=== PATIENT | female | born 1935 | race Caucasian/White ===

== ENCOUNTER 2016-11-17 10:48 | Outpatient (CLI) | payer MEDICARE, OTHER ==
--- NOTE | 2016-11-17 12:08 | XRAY Report ---
TWO-VIEW RIGHT LOWER LE11/17/2016 CLINICAL INDICATION: Pain. FINDINGS: Frontal and lateral views of the right lower leg demonstrate no evidence of acute fracture or dislocation. No radiopaque foreign body is seen in the soft tissues. IMPRESSION: NORMAL RIGHT LOWER LEG. JOB #: [id number] EXT JOB #:[id number]
== END 2016-11-17 10:49 | disposition home or self-care (01) ==
LOC: DI 10:48
PROVIDERS: ATTEND Internal Medicine
DX: M79.661 Pain in right lower leg (principal)

== ENCOUNTER 2016-12-06 20:50 | Outpatient (CLI) | payer MEDICARE, OTHER ==
--- NOTE | 2016-12-06 22:20 | Ultrasound Preliminary Report ---
Exam: US Duplex Ext Veins Right IMPRESSION: No evidence for deep venous thrombosis. [facility] SITE ID: [id number]
--- NOTE | 2016-12-06 22:22 | Ultrasound Report ---
EXAM: RIGHT LOWER EXTREMITY VENOUS ULTRASOUND EXAM DATE: 12/06/2016 09:02 PM. CLINICAL HISTORY: R LEG PAIN. COMPARISON: None. TECHNIQUE: Real-time sonographic vascular imaging was performed by the engineering specialist technician through the lower extremity utilizing both color-flow and Doppler spectral analysis. Multiple used equipment sales representative static ketan ges were saved for review. FINDINGS: Common Femoral Vein (CFV): Normal. CFV-GSV Junction: Normal. Profunda Femoral Vein (PFV): Normal. Femoral Vein (FV) Prox: Normal. Femoral Vein (FV) Mid: Normal. Femoral Vein (FV) Dist: Normal. Popliteal Vein: Normal. Posterior Tibial Veins: Normal. Peroneal Veins: Normal. Other: Tiny fluid collection in the soft tissues at the lateral right knee in the area of pain measur ing 4 x 2 x 6 mm. IMPRESSION: No evidence for deep venous thrombosis. [facility] Referring Provider Line: [phone] SITE ID: [id number]
== END 2016-12-06 20:51 | disposition home or self-care (01) ==
LOC: DI 20:50
PROVIDERS: ATTEND Internal Medicine
DX: M79.604 Pain in right leg (principal)

== ENCOUNTER 2016-12-29 07:13 | Day surgery (SDC) | payer MEDICARE, OTHER ==
[~2016-12-29 07:13] MED LIST: PHENYLEPHRINE 2.5% OPHTH 2 ML DROPS ONE
[2016-12-29] MEDS ORDERED: LACTATED RINGERS 1,000 ML IV ONE (07:27)
[2016-12-29] MEDS ORDERED: PROPARACAINE 0.5% OPHTH DROPS 15 ML OPTH ONE ×2 (07:36→08:51)
[2016-12-29] MEDS ORDERED: CYCLOPENTOLATE 1% OPHTH DROPS 2 ML OPTH ONE (07:36)
[2016-12-29] MEDS ORDERED: PHENYLEPHRINE 2.5% OPHTH 2 ML DROPS OPTH ONE (07:36)
[2016-12-29] MEDS ORDERED: KETOROLAC 0.45% OPHTH DROPS OPTH ONE (07:36)
[2016-12-29] MEDS ORDERED: EPINEPHrine 1 MG/ML AMP IVP ONE (08:50)
[2016-12-29] MEDS ORDERED: BRIMONIDINE 0.2% OPHTH DROPS 5 ML OPTH ONE (08:50)
[2016-12-29] MEDS ORDERED: CHONDR SULF/HYALURONATE SYRINGE IO ONE (08:50)
[2016-12-29] MEDS ORDERED: TIMOLOL 0.5% OPHTH DROPS OPTH ONE (08:51)
[2016-12-29] MEDS ORDERED: TRIAMCIN/MOXIFLOX/VANCO 1 ML VIAL IO ONE ×3 (08:51)
[2016-12-29] MEDS ORDERED: BSS/LIDOCAINE/EPINEPHRINE 1 ML SYRINGE IO ONE ×2 (08:51)
[2016-12-29] MEDS ORDERED: PROPOFOL 200 MG/20 ML VIAL IVP ONE (09:00)
[2016-12-29] MEDS ORDERED: LIDOCAINE-MPF 2% 5 ML VIAL IM ONE (09:00)
[2016-12-29] MEDS ORDERED: MIDAZOLAM 2 MG/2 ML VIAL IVP ONE (09:00)
--- NOTE | 2016-12-29 09:35 | OPERATIVE REPORT ---
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 This was her first cataract surgery. A Malyugin ring was used to expand the pupil. 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 This was her first cataract surgery. A Malyugin ring was used to expand the pupil. NAME OF PROCEDURE: Phacoemulsification, posterior chamber intraocular lens implant, left eye. SURGEON: Collin Beverly M.D. ANESTHESIA: Monitored anesthesia care. COMPLICATIONS: None. 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 Best corrected visual acuity was 20/30 with glare to 20/200 in the left eye. INDICATIONS FOR SURGERY: Overall decrease in vision, difficulty reading, difficulty seeing street signs, difficulty driving in low light or at night, difficulty driving at night because of the headlights from other vehicles or street lights, difficulty with glare or bright lights in any situation, and difficulty tracking a golf ball. She was consented at length concerning the risks and benefits of cataract surgery, after which she expressed a desire to proceed with surgery. OPERATIVE PROCEDURE: The patient was taken into OR #2 and placed under monitored anesthesia care. A surgical time-out was conducted, confirming correct patient, correct procedure, and correct surgical site. She was placed under the LenSx laser and her eye docked to the laser interface. The laser performed the phaco wounds and an arcuate keratotomy incision. She was then moved to the operating microscope, given topical anesthesia, and then prepped and draped in the usual sterile fashion. The eye was entered at the 6 and 3 o'clock positions. Intracameral Shugarcaine was injected into the anterior chamber followed by Viscoat. A Malyugin ring was then introduced into the anterior chamber and engaged the pupil at 4 points. A curvilineal capsulorrhexis flap was then created with a cystotome followed by capsulorrhexis forceps and the capsulorrhexis removed from the anterior chamber. The nucleus was hydrodissected and phacoemulsified. The cortex was evacuated using automated infusion/aspiration. Provisc was injected in the capsular bag and a 23.0 diopter intraocular lens inserted in the bag. The Malyugin ring was disengaged from the pupil margin and removed from the anterior chmaber. Approximately 0.8 ml of a mixture of triamcinolone, moxifloxacin, and vancomycin was injected subconjunctivally in the superior quadrant for infection and inflammation prophylaxis. I/A was used to evacuate the viscoelastic materials. The eye was inflated to physiologic pressure using balanced salt solution and found to be watertight. The patient was taken from the operating room in good condition and given postoperative instructions. JOB #: [id number] EXT JOB #:[id number]
[2016-12-29 09:40] VITALS: BP 136/75
== END 2016-12-29 07:14 | disposition home or self-care (01) ==
LOC: SDS 07:13
PROVIDERS: ATTEND Ophthalmology
PROC: 08RK3JZ Replacement of Left Lens with Synthetic Substitute, Percutaneous Approach (ICD-10-PCS; principal; 2016-12-29 08:30)
DX: H25.12 Age-related nuclear cataract, left eye (principal); Z82.49 Family history of ischemic heart disease and other diseases of the circulatory system; Z90.710 Acquired absence of both cervix and uterus; Z88.0 Allergy status to penicillin
CPT/HCPCS: 66982; A9270; J7120; V2632

== ENCOUNTER 2017-01-05 10:58 | Outpatient (CLI) | payer MEDICARE, OTHER ==
--- NOTE | 2017-01-05 18:54 | MRI Report ---
EXAM: RIGHT CALF/TIBIA MRI WITHOUT CONTRAST EXAM DATE: 01/05/2017 12:14 PM. CLINICAL HISTORY: Chronic right lateral leg pain. Evaluate for stress fracture. COMPARISON: X-ray 11/17/2016. TECHNIQUE: Multiplanar, multisequence T1-weighted and fluid-sensitive sequences of the calf/tibia wit hout contrast. Other: None. FINDINGS: Bones: Minimal endosteal T2 hyperintensity posterior distal fibula on (801/21). Remaining bony struct ures appear normal. Joint Spaces: Visualized portions of the ankle and knee joints are unremarkable. Tendons: Where visualized, the Achilles and plantaris tendons are intact. Musculature: No edema or fatty atrophy. Other: The subcutaneous tissues are unremarkable. IMPRESSION: 1. Minimal endosteal marrow edema distal fibula, suggests mild stress reaction. [facility] MUSCULOSKELETAL RADIOLOGY SECTION Referring Provider Line: [phone] SITE ID: [id number]
== END 2017-01-05 10:59 | disposition home or self-care (01) ==
LOC: DI 10:58
PROVIDERS: ATTEND Orthopaedic Surgery
DX: M79.604 Pain in right leg (principal)

== ENCOUNTER 2017-02-02 07:49 | Day surgery (SDC) | payer MEDICARE, OTHER ==
[~2017-02-02 07:49] MED LIST changes: +CYCLOPENTOLATE 1% OPHTH DROPS 2 ML ONE; +KETOROLAC 0.45% OPHTH DROPS ONE; +PROPARACAINE 0.5% OPHTH DROPS 15 ML ONE
[2017-02-02] MEDS ORDERED: CYCLOPENTOLATE 1% OPHTH DROPS 2 ML OPTH ONE (08:30)
[2017-02-02] MEDS ORDERED: PROPARACAINE 0.5% OPHTH DROPS 15 ML OPTH ONE ×2 (08:30→09:43)
[2017-02-02] MEDS ORDERED: PHENYLEPHRINE 2.5% OPHTH 2 ML DROPS OPTH ONE (08:30)
[2017-02-02] MEDS ORDERED: KETOROLAC 0.45% OPHTH DROPS OPTH ONE (08:30)
[2017-02-02] MEDS ORDERED: LACTATED RINGERS 500 ML IV ONE (08:33)
[2017-02-02] MEDS ORDERED: MIDAZOLAM 2 MG/2 ML VIAL IVP ONE (09:31)
[2017-02-02] MEDS ORDERED: BRIMONIDINE 0.2% OPHTH DROPS 5 ML OPTH ONE (09:42)
[2017-02-02] MEDS ORDERED: BSS/LIDOCAINE/EPINEPHRINE 1 ML SYRINGE IO ONE (09:43)
[2017-02-02] MEDS ORDERED: TIMOLOL 0.5% OPHTH DROPS OPTH ONE (09:43)
[2017-02-02] MEDS ORDERED: EPINEPHrine 1 MG/ML AMP IVP ONE (09:43)
[2017-02-02] MEDS ORDERED: CHONDR SULF/HYALURONATE SYRINGE IO ONE (09:43)
[2017-02-02] MEDS ORDERED: TRIAMCIN/MOXIFLOX/VANCO 1 ML VIAL IO ONE ×2 (09:44)
[2017-02-02 10:20] VITALS: BP 103/56
--- NOTE | 2017-02-03 03:15 | OPERATIVE REPORT ---
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 Cataract surgery was performed similarly on the rig ht eye on 29 December 2016 again using pupil expansion with Malyugin ring. POSTOPERATIVE DIAGNOSIS: Visually significant cataract left eye, complex due to small pupil requirin g pupil expansion from pseudoexfoliation syndrome. Cataract surgery was performed similarly on the ri t eye on 29 December 2016 again using pupil expansion with Malyugin ring. NAME OF PROCEDURE: Phacoemulsification posterior chamber intraocular lens implant left eye. SURGEON: Collin Beverly M.D. ANESTHESIA: Monitored anesthesia care. COMPLICATIONS: None. OPERATIVE INDICATIONS: This is an 81-year-old woman with progressive vision loss in the left eye due to 3-4+ nuclear sclerotic cataract. Best corrected visual acuity was 20/25 with glare to 20/200 in th e right eye. INDICATIONS FOR SURGERY: Overall decrease in vision, difficulty seeing words on a computer screen, di fficulty seeing words and closed captions on TV. Difficulty seeing street signs, difficulty driving a t night because of headlights from other vehicles and difficulty tracking a golf ball. She consented at length concerning risks and benefits of cataract surgery after which she expressed a desire to pro ceed with surgery. OPERATIVE PROCEDURE: The patient was taken into OR #2 and placed under monitored anesthesia care. A s urgical timeout was conducted confirming correct patient, correct procedure and correct surgical site . She was placed under the LenSx laser and her eye docked to the laser interface. The laser performed phaco-wounds and ocular keratotomy incisions only because her pupil is too small to be able to perfo rm a capsulotomy or lens softening. She was then moved to the operating microscope, given topical ane sthesia and prepped and draped in the usual sterile fashion. The eye was entered at 6 and 3 o'clock p ositions. Intracameral Shugarcaine was injected into the anterior chamber followed by Viscoat. The Ma lyugin ring was injected into the anterior chamber and gauged the pupil at 4 points to expand the pup il. A capsulorhexis flap was created using a Cystotome and Utrata forceps. The nucleus was then hydro dissected and phacoemulsified. The cortex was evacuated using automated and infusion aspiration. Prov isc was injected in the capsular bag and a 22.5 Diopter intraocular lens inserted into the bag. Appro ximately 0.9 mL of a mixture of triamcinolone, moxifloxacin, vancomycin was injected in the subconjun ctival and superior quadrant for inflammation and infection prophylaxis. The Malyugin ring was then d isengaged from the pupillary margin and removed from the anterior chamber. I/A was used to evacuate t he viscoelastic structures. The eye was inflated to a physiologic pressure using balanced salt soluti on and found to be watertight. The patient was taken from the operating room in good condition and gi ann-marie postoperative instructions. JOB #: [id number] EXT JOB #:[id number]
== END 2017-02-02 07:50 | disposition home or self-care (01) ==
LOC: SDS 07:49
PROVIDERS: ATTEND Ophthalmology
PROC: 08RK3JZ Replacement of Left Lens with Synthetic Substitute, Percutaneous Approach (ICD-10-PCS; principal; 2017-02-02 09:00)
DX: H25.11 Age-related nuclear cataract, right eye (principal); Z98.41 Cataract extraction status, right eye; Z96.1 Presence of intraocular lens
CPT/HCPCS: 66982; A9270; J3490; V2632

== ENCOUNTER 2017-02-23 11:05 | Outpatient (CLI) | payer MEDICARE, OTHER | END 2017-02-23 11:06 | disposition home or self-care (01) | LOC: CAM 11:05 | PROVIDERS: ATTEND Internal Medicine | DX: M79.604 Pain in right leg (principal) | CPT/HCPCS: 97810; 97811 ==

== ENCOUNTER 2017-03-02 11:57 | Outpatient (CLI) | payer SELFPAY | END 2017-03-02 11:58 | disposition home or self-care (01) | LOC: CAM 11:57 | PROVIDERS: ATTEND Internal Medicine | DX: M79.604 Pain in right leg (principal) | CPT/HCPCS: 97813; 97814 ==

== ENCOUNTER 2017-03-09 16:09 | Outpatient (CLI) | payer SELFPAY | END 2017-03-09 16:10 | disposition home or self-care (01) | LOC: CAM 16:09 | PROVIDERS: ATTEND Internal Medicine | DX: M79.604 Pain in right leg (principal) | CPT/HCPCS: 97813; 97814 ==

== ENCOUNTER 2020-05-27 11:31 | Outpatient (CLI) | payer MEDICARE, OTHER ==
--- NOTE | 2020-05-27 13:41 | Ultrasound Report ---
PROCEDURE: Head or Neck Soft Tissue INDICATIONS: LT POSTERIOR NECK LUMP TECHNIQUE: Real time scanning was performed of the neck region of interest, with image documentation . COMPARISON: None. FINDINGS: No soft tissue neck abnormality seen bilaterally the clinical history obtained from the p atient indicates palpable lump posterior lateral left neck for approximately 3 weeks without reported pain. This has not changed in size. During scanning over the area directed by the patient no mass le carlotta, abnormal fluid collection or lymph node is identified. IMPRESSION: Continued clinical follow-up is recommended. A sonographically identifiable source of the current rep orted asymmetric persistent palpable abnormality without pain is not identified. Depending on the cli nical status follow-up by high-resolution contrast enhanced MR scanning may become necessary if sympt oms persist or worsen. Reviewed by: Price Hicks MD on 05/27/2020 1:40 PM PST Approved by: Price Hicks MD on 05/27/2020 1:40 PM PST Station ID: [id number]
== END 2020-05-27 11:32 | disposition home or self-care (01) ==
LOC: DI 11:31
PROVIDERS: ATTEND Internal Medicine
DX: R22.1 Localized swelling, mass and lump, neck (principal)
CPT/HCPCS: 76536

== ENCOUNTER 2020-06-17 15:44 | Outpatient (CLI) | payer MEDICARE, OTHER ==
[2020-06-17 16:34] LABS: CREATININE 0.7 mg/dL (0.4-1.0)
[2020-06-17] MEDS ORDERED: GADOBUTROL 7.5 MMOL/7.5 ML VIAL IVP ONE (17:54)
--- NOTE | 2020-06-18 13:00 | MRI Report ---
PROCEDURE: Neck Soft Tissue W/WO INDICATIONS: LUMP POSTERIOR L, NECK CONTRAST: IV CONTRAST: Gadavist ml: 4 TECHNIQUE: Sagittal/axial/coronal T1 spin echo and STIR. After the administration of contrast, axial/coronal/sa gittal T1 fast spin echo with fat saturation through the neck. COMPARISON: Neck ultrasound 05/27/2020 FINDINGS: Image quality: Excellent. Lymph nodes: No enlarged nodes are seen throughout the neck. Vessels: Visualized vasculature appears normal, with eduar flow voids and enhancement. Neck spaces: The oropharynx, nasopharynx and pharynx are unremarkable, without mucosal lesions seen. Vocal cords, false vocal cords, pyriform sinuses, epiglottis, vallecula, and tongue base all appear normal. Extramucosal spaces of the neck also appear unremarkable. Glands: The parotid and submandibular glands appear normal. The thyroid is normal in size. Miscellaneous: Visualized brain and orbits appear normal. Lung apices appear clear. Superficial so ft tissues appear normal. Visualized sinuses and mastoids appear clear. Bones: Marrow has normal overall signal. IMPRESSION: 1. No visualized abnormal signal, mass lesion or enhancement within the area of palpable concern. Reviewed by: Michela Kerr MD on 06/18/2020 12:59 PM PST Approved by: Michela Kerr MD on 06/18/2020 12:59 PM PST Station ID: [id number]
== END 2020-06-17 15:45 | disposition home or self-care (01) ==
LOC: LAB 15:44
PROVIDERS: ATTEND Internal Medicine
DX: R22.1 Localized swelling, mass and lump, neck (principal); Z79.899 Other long term (current) drug therapy
CPT/HCPCS: 36415; 70543; 82565; A9585

== ENCOUNTER 2021-10-27 15:46 | Outpatient (CLI) | payer MEDICARE, OTHER ==
[2021-10-27 18:12] LABS: ALBUMIN 4.3 g/dL (3.2-5.5); ALBUMIN/GLOBULIN RATIO 1.4 (1.0-2.2); ALKALINE PHOSPHATASE 72 IU/L (42-121); ALT ALANINE AMINOTRANSFERASE 12 IU/L (10-60); AST ASPARTATE AMINOTRANSFERASE 26 IU/L (10-42); BILIRUBIN,TOTAL 0.5 mg/dL (0.2-1.0); BUN - BLOOD UREA NITROGEN 15 mg/dL (6-20); CALCIUM 9.4 mg/dL (8.5-10.3); CARBON DIOXIDE - CO2 30 mmol/L (21-32); CHLORIDE 92 mmol/L (101-111); CHOLESTEROL 198 mg/dL; CREATININE 0.6 mg/dL (0.4-1.0); GFR - MDRD 95 (>89); GLUCOSE 112 mg/dL (70-100); HDL CHOLESTEROL 100 mg/dL; LDL CHOLESTEROL,CALCULATED 75 mg/dL; LDL/HDL RATIO 0.8 (<4.4); POTASSIUM 3.8 mmol/L (3.5-5.0); SODIUM 130 mmol/L (135-145); TOTAL PROTEIN 7.4 g/dL (6.7-8.2); TRIGLYCERIDES 113 mg/dL; VLDL CHOLESTEROL 23 mg/dL
[2021-10-27 18:22] LABS: BASOPHILS % (AUTO) 0.4 %; EOSINOPHILS % (AUTO) 0.6 %; HCT - HEMATOCRIT 41.9 % (37.0-47.0); HGB - HEMOGLOBIN 13.7 g/dL (12.0-16.0); LYMPHOCYTES # (AUTO) 0.8 10^3/uL (1.5-3.5); LYMPHOCYTES % (AUTO) 15.3 %; MEAN CORPUSCULAR HEMOGLOBIN 31.2 pg (27.0-31.0); MEAN CORPUSCULAR HGB CONC 32.7 g/dL (32.0-36.0); MEAN CORPUSCULAR VOLUME 95.4 fL (81.0-99.0); MEAN PLATELET VOLUME 9.1 fL (7.9-10.8); MONOCYTES # (AUTO) 0.4 10^3/uL (0.0-1.0); MONOCYTES % (AUTO) 7.4 %; NEUTROPHILS # (AUTO) 3.8 10^3/uL (1.5-6.6); NEUTROPHILS % (AUTO) 75.7 %; PLT - PLATELET COUNT 271 10^3/uL (130-450); RED BLOOD COUNT 4.39 10^6/uL (4.20-5.40); RED CELL DISTRIBUTION WIDTH 12.6 % (12.0-15.0)
== END 2021-10-27 15:47 | disposition home or self-care (01) ==
LOC: LAB.R 15:46
PROVIDERS: ATTEND Internal Medicine
DX: Z00.00 Encounter for general adult medical examination without abnormal findings (principal); N95.2 Postmenopausal atrophic vaginitis; H61.20 Impacted cerumen, unspecified ear; M19.90 Unspecified osteoarthritis, unspecified site; M85.80 Other specified disorders of bone density and structure, unspecified site; R49.0 Dysphonia; R73.01 Impaired fasting glucose
CPT/HCPCS: 80053; 80061; 81599; 83036; 83721; 84443; 85025

== ENCOUNTER 2021-11-05 13:46 | Outpatient (CLI) | payer MEDICARE, OTHER ==
--- NOTE | 2021-11-05 17:56 | DEXA Report ---
PROCEDURE: Dexa Spine and/or Hip INDICATIONS: OSTEOPENIA TECHNIQUE: Dual energy x-ray absorptiometry (DXA) was performed on a Postachio System. Regions measur ed are the AP Spine, femoral neck, and if needed forearm. COMPARISON: None. FINDINGS: Lumbar Spine: Bone Mineral Density 0.965 g/cm/cm,T score -1.8 Left Hip: Bone Mineral Density 0.649 g/cm/cm,T score - 2.8 Left Femoral Neck: Bone Mineral Density 0.609 g/cm/cm, T score -3.1 (T score greater or equal to -1.0: NORMAL) (T score from -1.1 to -2.4: OSTEOPENIA) (T score less than or equal to -2.5 to: OSTEOPOROSIS) Impression: Osteoporosis Patients with diagnosis of osteoporosis or osteopenia should have regular bone mineral density assess ment. For those eligible for Medicare, routine testing is allowed once every 2 years. Testing frequ ency can be increased for patients who have rapidly progressing disease or for those who are receivin g medical therapy to restore bone mass. Reviewed by: Vik Bob MD on 11/05/2021 5:54 PM PDT Approved by: Vik Bob MD on 11/05/2021 5:54 PM PDT Station ID: [id number]
== END 2021-11-05 13:47 | disposition home or self-care (01) ==
LOC: DI 13:46
PROVIDERS: ATTEND Internal Medicine
DX: M81.0 Age-related osteoporosis without current pathological fracture (principal)

== ENCOUNTER 2021-11-25 12:15 | Outpatient (CLI) | payer MEDICARE, OTHER ==
[2021-11-25] MEDS ORDERED: GADOBUTROL 7.5 MMOL/7.5 ML VIAL ONE (12:58)
[2021-11-25] MEDS ORDERED: GADOBUTROL 7.5 MMOL/7.5 ML VIAL IVP ONE (14:29)
--- NOTE | 2021-11-25 15:04 | MRI Report ---
PROCEDURE: Angio Neck W/WO (MRA) INDICATIONS: SPEECH PROBLEMS CONTRAST: IV CONTRAST: Gadavist ml: 3.9 TECHNIQUE: Axial and sagittal balanced GE through the neck. Noncontrast 2D [id number] images were performed . Coronal dynamic MRA after the administration of contrast in the arterial and venous phases, with ro tating 3-dimensional maximum intensity projection (MIP) reformats constructed from subtraction images . COMPARISON: Correlation is made with the accompanying brain MRI and brain MR angiogram, 11/24/2021. FINDINGS: Image quality: Excellent. Carotid system: Incidental note is made of a common trunk off of the aorta of the right brachiocepha lic artery and the left common carotid artery (bovine type aortic arch). 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 The origins of the common carotid arteri es appear normal. The calibers and courses of the common carotid arteries are likewise normal. The carotid bifurcations appear normal bilaterally. The internal carotid arteries are widely patent up t o the [place]. On the noncontrast images, no findings of dissection are detected. Normal di rection of flow can be seen within the carotid arteries and within the vertebral arteries. Posterior circulation: The origins of the vertebral arteries are unremarkable. The more superior po rtions of the vertebral arteries demonstrate normal course and caliber. Vertebral arteries join to f orm a normal appearing basilar artery. Miscellaneous: Subclavian arteries are patent throughout. Pre-contrast images through the neck demo nstrate no soft tissue abnormalities. IMPRESSION: No hemodynamically significant stenosis can be seen within the arteries of the neck. Incidental note is made of: Bovine type aortic branching pattern Reviewed by: Jayjay Butler MD on 11/25/2021 2:03 PM [facility] Approved by: Jayjay Butler MD on 11/25/2021 2:03 PM JOSE Station ID: [id number]
--- NOTE | 2021-11-25 15:06 | MRI Report ---
PROCEDURE: Brain W/WO INDICATIONS: SPEECH PROBLEMS CONTRAST: IV CONTRAST: Gadavist ml: 3.9 TECHNIQUE: Noncontrast axial T1 spin echo, axial T2 fast spin echo, sagittal and axial FLAIR, coronal T2 fast sp in echo, axial gradient echo, axial diffusion and ADC through the brain. After the administration of contrast, axial and coronal T1 spin echo with fat saturation through the brain. COMPARISON: Correlation is made with the accompanying brain MR angiogram and neck MR angiogram, 11/25. FINDINGS: Image quality: Excellent. CSF spaces: Basal cisterns are patent. No extra-axial fluid collections. Ventricles are normal in size and shape. Brain: No midline shift. No intracranial bleeds or masses. No abnormal intracranial enhancement. There is cerebral volume loss for age. There is periventricular white matter chronic small vessel is chemic change. The brainstem appears normal. Diffusion-weighted images demonstrate no acute ischemi c insults. No chronic ischemic insults. Normal intravascular flow voids are present. Prominent juan alberto vascular spaces are incidentally noted. Skull and face: Calvarial marrow is normal in signal. Orbits appear normal. Incidental note is mad e of bilateral lens replacements. Sinuses: Sinuses and mastoids appear clear. IMPRESSION: No imaging explanation is found for the patient's presenting symptoms. No findings of acute or subacute infarction are seen. No significant prior infarct can be seen. Age-appropriate brain parenchymal volume loss and chronic small vessel ischemic change can be seen. Reviewed by: Jayjay Butler MD on 11/25/2021 2:05 PM JOSE Approved by: Jayjay Butler MD on 11/25/2021 2:05 PM JOSE Station ID: [id number]
--- NOTE | 2021-11-25 15:07 | MRI Report ---
PROCEDURE: Angio Brain W/O (MRA) INDICATIONS: SPEECH PROBLEMS TECHNIQUE: Noncontrast axial 3-D [id number] MR angiogram, with 3-dimensional maximum intensity projection (M IP) reformats of the internal carotid arteries and posterior circulation then performed. COMPARISON: Correlation is made with the accompanying brain MRI and neck MR angiogram, 11/25/2021. FINDINGS: Image quality: Excellent. Anterior circulation: Intracranial internal carotid arteries demonstrate normal size and intralumina l flow signal. The flow within the paired anterior cerebral arteries is normal and symmetric. The f low within the middle cerebral arteries is normal and symmetric. The anterior communicating artery i s seen. No stenoses, occlusions, or aneurysms. Posterior circulation: Visualized portions of the vertebral arteries demonstrate normal caliber, and join to form a normal appearing basilar artery. The flow within the posterior cerebral arteries is normal and symmetric. No stenoses, occlusions, or aneurysms. IMPRESSION: No significant intracranial arterial abnormalities are seen. Reviewed by: Jayjay Butler MD on 11/25/2021 2:06 PM JOSE Approved by: Jayjay Butler MD on 11/25/2021 2:06 PM JOSE Station ID: [id number]
== END 2021-11-25 12:16 | disposition home or self-care (01) ==
LOC: DI 12:15
PROVIDERS: ATTEND Internal Medicine
DX: R49.0 Dysphonia (principal)
CPT/HCPCS: 70544; 70549; 70553; A9585

== ENCOUNTER 2023-06-09 12:23 | Outpatient (CLI) | payer MEDICARE, OTHER ==
--- NOTE | 2023-06-09 17:33 | XRAY Report ---
PROCEDURE: Chest 2 View X-Ray INDICATIONS: COUGH TECHNIQUE: 2 views of the chest were acquired. COMPARISON: 05/19/2014. FINDINGS: Surgical changes and devices: None. Lungs and pleura: No pleural effusions or pneumothorax. Lungs are clear. Mediastinum: Mediastinal contours appear normal. Heart size is normal. Bones and chest wall: No suspicious bony lesions. Overlying soft tissues appear unremarkable. IMPRESSION: No acute cardiopulmonary process. No focal airspace disease. Reviewed by: Samy Ventura MD on 06/09/2023 5:32 PM PST Approved by: Samy Ventura MD on 06/09/2023 5:32 PM [facility] Station ID: [id number]
== END 2023-06-09 12:24 | disposition home or self-care (01) ==
LOC: DI 12:23
PROVIDERS: ATTEND Internal Medicine
DX: R05.3 Chronic cough (principal)